=== PATIENT | female | born 1950 | race Caucasian/White ===

== ENCOUNTER 2016-08-26 09:31 | Emergency (ER) | payer OTHER ==
[~2016-08-26] VITALS: Ht 157.5 cm; Wt 68.0 kg
[2016-08-26 11:01] VITALS: BP 137/90
== END 2016-08-26 11:01 | disposition home or self-care (01) ==
LOC: ED 09:31
DX: F41.9 Anxiety disorder, unspecified (principal); E11.65 Type 2 diabetes mellitus with hyperglycemia; E78.5 Hyperlipidemia, unspecified; F32.9 Major depressive disorder, single episode, unspecified; I10 Essential (primary) hypertension

== ENCOUNTER 2018-08-21 21:01 | Emergency (ER) | payer OTHER, MEDICAID ==
[~2018-08-21] VITALS: Ht 154.9 cm; Wt 71.7 kg
[2018-08-21 21:21] VITALS: Ht 154.9 cm; Wt 71.7 kg
[2018-08-21 23:11] VITALS: BP 130/68
== END 2018-08-21 23:11 | disposition home or self-care (01) ==
LOC: ED 21:01
DX: S82.091A Other fracture of right patella, initial encounter for closed fracture (principal); I10 Essential (primary) hypertension; E11.9 Type 2 diabetes mellitus without complications; W19.XXXA Unspecified fall, initial encounter; Y93.01 Activity, walking, marching and hiking; Y92.89 Other specified places as the place of occurrence of the external cause; Y99.8 Other external cause status